=== PATIENT | male | born 1985 | race Caucasian/White ===

== ENCOUNTER 2025-04-01 11:31 | Emergency (ER) | payer OTHER ==
[~2025-04-01] VITALS: Ht 175.2 cm; Wt 93.0 kg
[2025-04-01] MEDS ORDERED: Tdap Vaccine 0.5 ML SYR (Adult Vaccine) IM ONE (12:10)
[2025-04-01] MEDS ORDERED: VIBRAMYCIN100 MG PO (12:52)
== END 2025-04-01 12:50 | disposition home or self-care (01) ==
LOC: ED 11:31
DX: S61.216A Laceration without foreign body of right little finger without damage to nail, initial encounter (principal); Z88.2 Allergy status to sulfonamides; W27.8XXA Contact with other nonpowered hand tool, initial encounter; Y93.89 Activity, other specified; Y92.89 Other specified places as the place of occurrence of the external cause; Y99.8 Other external cause status